=== PATIENT | female | born 1990 | race Caucasian/White ===

== ENCOUNTER 2016-08-03 11:02 | Emergency (ER) | payer SELFPAY ==
[~2016-08-03] VITALS: Ht 170.2 cm; Wt 102.0 kg
[~2016-08-03 11:02] MED LIST: BACT800T5 PO; PHEN-426 PO
[2016-08-03 11:18] VITALS: BP 115/78; PULSE 89; RESP 18; TEMP 98.2; O2SAT 99
[2016-08-03] MEDS ORDERED: SODIUM CHLOR 0.9% 1000 ML INJ 1,000 ML IV SCH (11:56)
[2016-08-03] MEDS ORDERED: ONDANSETRON HCL 4 MG/2 ML VIAL IVP ONE (12:00)
[2016-08-03] MEDS ORDERED: MORPHINE SULFATE 4 MG/ML INJ IV PUSH ONE (12:00)
[2016-08-03 12:13] LABS: AUTOMATED NEUTROPHIL # 8.1 TH/MM3 (1.8-7.7); BASOPHIL # 0.1 TH/MM3 (0-0.2); BASOPHIL % 0.8 % (0.0-2.0); EOSINOPHIL % 0.1 % (0.0-4.0); HEMATOCRIT 49.1 % (35.0-46.0); HEMO FLAGS DIFF FINAL; LYMPH % 5.1 % (9.0-44.0); LYMPHOCYTE # 0.5 TH/MM3 (1.0-4.8); MEAN CELL VOLUME 90.5 FL (80.0-100.0); MEAN CORPUSCULAR HEMOGLOBIN 30.8 PG (27.0-34.0); MONO % 6.8 % (0.0-8.0); NEUT % 87.2 % (16.0-70.0); PLATELET COUNT 207 TH/MM3 (150-450); RED BLOOD COUNT 5.43 MIL/MM3 (4.00-5.30); RED CELL DISTRIBUTION WIDTH 11.6 % (11.6-17.2); WHITE BLOOD COUNT 9.3 TH/MM3 (4.0-11.0)
--- NOTE | 2016-08-03 12:14 | PD ---
HPI Chief Complaint: Abdominal Pain Time Seen by Provider: 11:52 Travel History International Travel<30 days: No Contact w/Intl Traveler<30days: No Traveled to known affect area: No History of Present Illness HPI 26-year-old female complains of abdominal cramping with nausea vomiting and diarrhea. Patient states that she started having abdominal cramping with vomiting since last night. Patient states the diarrhea started this morning. Patient states that the abdominal pain is cramping pain diffuse over the abdomen intermittent pain. Patient denies any pain radiation. Patient denies any dysuria or frequency. Patient denies any vaginal discharge or bleeding. Patient denies any fever chills. Patient denies any blood or mucus in the stool or vomitus. Patient denies any recent travel. Patient denies any recent ingestion of raw seafood. PFSH Past Medical History Medical History: Denies Significant Hx Diminished Hearing: No Tetanus Vaccination: < 5 Years Influenza Vaccination: No ?: Unknown LMP: LAST WEEK Past Surgical History Surgical History: No Previous Surgery Social History Alcohol Use: Yes (occ) Tobacco Use: Yes (1/2 ppd) Substance Use: No Allergies-Medications (Allergen,Severity, Reaction): Coded Allergies: No Known Allergies (Unverified , 08/03/16) Reported Meds & Prescriptions Reported Meds & Active Scripts Active Review of Systems General / Constitutional: No: Fever Eyes: No: Visual changes HENT: No: Headaches Cardiovascular: No: Chest Pain or Discomfort Respiratory: No: Shortness of Breath Gastrointestinal: Positive: Nausea, Vomiting, Diarrhea, Abdominal Pain Genitourinary: No: Dysuria Musculoskeletal: No: Pain Skin: No Rash Neurologic: No: Weakness Psychiatric: No: Depression Endocrine: No: Polydipsia Hematologic/Lymphatic: No: Easy Bruising Physical Exam Narrative GENERAL: Well-nourished, well-developed patient. SKIN: Warm and dry. HEAD: Normocephalic. EYES: No scleral icterus. No injection or drainage. NECK: Supple, trachea midline. No JVD or lymphadenopathy. CARDIOVASCULAR: Regular rate and rhythm without murmurs, gallops, or rubs. RESPIRATORY: Breath sounds equal bilaterally. No accessory muscle use. GASTROINTESTINAL: Abdomen soft, nondistended. Patient has mild to moderate tenderness diffuse over the abdomen. No rebound tenderness. No mass. MUSCULOSKELETAL: No cyanosis, or edema. BACK: Nontender without obvious deformity. No CVA tenderness. Neurologic exam normal. Data Data Last Documented VS Vital Signs Date Time Temp Pulse Resp B/P Pulse Ox O2 Delivery O2 Flow Rate FiO2 08/03/16 12:20 98 08/03/16 11:18 98.2 89 18 115/78 Orders Complete Blood Count With Diff (08/03/16 11:56) Comprehensive Metabolic Panel (08/03/16 11:56) Lipase (08/03/16 11:56) Urinalysis - C+S If Indicated (08/03/16 11:56) Iv Access Insert/Monitor (08/03/16 11:56) Ecg Monitoring (08/03/16 11:56) Oximetry (08/03/16 11:56) Morphine Inj (Morphine Inj) (08/03/16 12:00) Ondansetron Inj (Zofran Inj) (08/03/16 12:00) Sodium Chlor 0.9% 1000 Ml Inj (Ns 1000 M (08/03/16 11:56) Ed Urine Pregnancytest Poc (08/03/16 11:56) Diphenhydramine Inj (Benadryl Inj) (08/03/16 12:30) Metoclopramide Inj (Reglan Inj) (08/03/16 12:30) Labs Laboratory Tests Test 08/03/16 11:50 White Blood Count 9.3 TH/MM3 Red Blood Count 5.43 MIL/MM3 Hemoglobin 16.7 GM/DL Hematocrit 49.1 % Mean Corpuscular Volume 90.5 FL Mean Corpuscular Hemoglobin 30.8 PG Mean Corpuscular Hemoglobin 34.0 % Concent Red Cell Distribution Width 11.6 % Platelet Count 207 TH/MM3 Mean Platelet Volume 9.2 FL Neutrophils (%) (Auto) 87.2 % Lymphocytes (%) (Auto) 5.1 % Monocytes (%) (Auto) 6.8 % Eosinophils (%) (Auto) 0.1 % Basophils (%) (Auto) 0.8 % Neutrophils # (Auto) 8.1 TH/MM3 Lymphocytes # (Auto) 0.5 TH/MM3 Monocytes # (Auto) 0.6 TH/MM3 Eosinophils # (Auto) 0.0 TH/MM3 Basophils # (Auto) 0.1 TH/MM3 CBC Comment DIFF FINAL Differential Comment Sodium Level 139 MEQ/L Potassium Level 3.4 MEQ/L Chloride Level 104 MEQ/L Carbon Dioxide Level 23.2 MEQ/L Anion Gap 12 MEQ/L Blood Urea Nitrogen 20 MG/DL Creatinine 0.66 MG/DL Estimat Glomerular Filtration 107 ML/MIN Rate Random Glucose 113 MG/DL Calcium Level 8.7 MG/DL Total Bilirubin 0.9 MG/DL Aspartate Amino Transf 13 U/L (AST/SGOT) Alanine Aminotransferase 25 U/L (ALT/SGPT) Alkaline Phosphatase 75 U/L Total Protein 7.5 GM/DL Albumin 3.7 GM/DL Lipase 72 U/L [facility] Medical Decision Making Medical Screen Exam Complete: Yes Emergency Medical Condition: Yes Interpretation(s) 1404 p.m. CBC with WBC 9.3. 87 neutrophil. Potassium 3.4. Differential Diagnosis Differential diagnosis including gastroenteritis, gastritis, PUD, appendicitis, cholecystitis, colitis, UTI, pyelonephritis. Narrative Course 26-year-old female with abdominal pain, nausea vomiting diarrhea. Normal saline solution 1 L IV bolus. Zofran 4 g IV. Morphine 2 mg IV. Diagnosis Primary Impression: Gastroenteritis Additional Impression: Abdominal colic Patient Instructions: General Instructions Additional Instructions: Clear fluid for 24 hours and advance as tolerated. Take medication as needed. Follow-up with personal physician. Return if persistent problem or worse. Med/Other Pt SpecificInfo: Prescription(s) given Scripts Diphenoxylate-Atropine (Lomotil)2.5-0.025 Mg Tab1 Tab PO Q6H PRN (DIARRHEA) #10 TAB Ref 0 Prov:Payam Vivar MD 08/03/16 Dicyclomine (Bentyl)20 Mg Tab20 Mg PO TID #15 TAB Prov:Payam Vivar MD 08/03/16 Ondansetron Odt (Zofran Odt)4 Mg Tab4 Mg SL Q6HR PRN (Nausea/Vomiting) #10 TAB Prov:Payam Vivar MD 08/03/16 Disposition: 01 DISCHARGE HOME Condition: Stable Payam Vivar MD Aug 03, 2016 12:13
[2016-08-03 12:20] VITALS: O2SAT 98
[2016-08-03 12:22] LABS: CHLORIDE 104 MEQ/L (98-107); POTASSIUM 3.4 MEQ/L (3.5-5.1); SODIUM (NA) 139 MEQ/L (136-145)
[2016-08-03 12:26] LABS: ANION GAP 12 MEQ/L (5-15); BICARBONATE 23.2 MEQ/L (21.0-32.0); BLOOD UREA NITROGEN 20 MG/DL (7-18)
[2016-08-03 12:29] LABS: ALT (GPT) 25 U/L (10-53); AST (GOT) 13 U/L (15-37); GLOMERULAR FILTRATION RATE 107 ML/MIN (>89)
[2016-08-03 12:30] LABS: TOTAL BILIRUBIN ADULT 0.9 MG/DL (0.2-1.0)
[2016-08-03] MEDS ORDERED: diphenhydrAMINE HCL 50 MG/ML VIAL IV PUSH ONE (12:30)
[2016-08-03] MEDS ORDERED: METOCLOPRAMIDE HCL 10 MG/2 ML VIAL IV PUSH ONE (12:30)
[2016-08-03 12:32] LABS: ALKALINE PHOSPHATASE 75 U/L (45-117)
[2016-08-03] MEDS ORDERED: BENT20TA PO (14:15)
[2016-08-03] MEDS ORDERED: ZOFR4TAB3 SL (14:15)
[2016-08-03] MEDS ORDERED: LOMO2.5T PO (14:15)
== END 2016-08-03 14:38 | disposition home or self-care (01) ==
LOC: PHED 11:02
DX: K52.9 Noninfective gastroenteritis and colitis, unspecified (principal)
CPT/HCPCS: 80053; 83690; 85025; 96361; 96374; 96375; 99284; J1200; J2270; J2405; J2765; J7030